=== PATIENT | female | born 1965 | race Caucasian/White ===

== ENCOUNTER 2019-03-01 09:55 | Inpatient (IN) | payer OTHER ==
[~2019-03-01 09:55] MED LIST: GLYCOPYRROLATE 0.4 MG INJ
[2019-03-01] MEDS ORDERED: FENTAnyl 50 MCG/ML VIAL ×2 (12:48→15:58)
[2019-03-01] MEDS ORDERED: SUCCINYLCHOLINE CHLORIDE 100 MG/5 ML SYG IV (14:57)
[2019-03-01] MEDS ORDERED: ROCURONIUM 50 MG INJ (14:57)
[2019-03-01] MEDS ORDERED: PROPOFOL 20 ML (14:57)
[2019-03-01] MEDS ORDERED: CEFAZOLIN 1 GM INJ (14:57)
[2019-03-01] MEDS ORDERED: LIDOCAINE 100 MG SYRINGE (14:57)
[2019-03-01] MEDS ORDERED: SUGAMMADEX SODIUM 200 MG/2 ML VIAL IV (14:57)
[2019-03-01] MEDS ORDERED: BUPIVACAINE 0.25%/EPI (SDV) 30 ML INJ (15:05)
[2019-03-01] MEDS ORDERED: HYDROmorphONE 1 MG/5 ML IV SYRINGE IV ×3 (15:58→16:00)
[2019-03-01] MEDS ORDERED: HYDROCODONE/APAP (5/325) TAB PO ×2 (16:00)
[2019-03-01] MEDS ORDERED: MEPERIDINE 25 MG INJ IV (16:00)
[2019-03-01] MEDS ORDERED: ONDANSETRON 4 MG INJ IV ×2 (16:00)
[2019-03-01] MEDS ORDERED: ALBUTEROL 0.083% (NEB) 2.5 MG/3 ML AMP HHN (16:00)
[2019-03-01] MEDS ORDERED: IBUPROFEN 600 MG TAB PO (16:00)
[2019-03-01] MEDS ORDERED: morphine 4 MG/ML VIAL IV (16:00)
[2019-03-01] MEDS ORDERED: ACETAMINOPHEN 325 MG TAB PO (16:00)
[2019-03-01] MEDS ORDERED: FENTAnyl 50 MCG/ML VIAL IV ×2 (16:00)
[2019-03-01] MEDS ORDERED: DIPHENHYDRAMINE 50 MG INJ IV (16:00)
[2019-03-01] MEDS ORDERED: METOCLOPRAMIDE 10 MG INJ IV (16:00)
[2019-03-01] MEDS: FENTAnyl 50 MCG/ML VIAL IV (16:25)
[2019-03-01] MEDS: HYDROmorphONE 1 MG/5 ML IV SYRINGE IV (16:26)
[2019-03-01] MEDS: KETOROLAC 30 MG INJ IV (18:06)
[2019-03-01] MEDS: DEXTROSE 5%-0.45% NACL 1,000 ML IV (18:09)
[2019-03-01] MEDS: DOCUSATE SODIUM 100 MG CAP PO (21:49)
[2019-03-01] MEDS: FAMOTIDINE 20 MG TAB PO (21:50)
[2019-03-02] MEDS: KETOROLAC 30 MG INJ IV ×2 (00:14→08:52)
[2019-03-02] MEDS: DEXTROSE 5%-0.45% NACL 1,000 ML IV (04:41)
[2019-03-02 05:25] LABS: ADD MAN DIFF? NO
[2019-03-02 05:30] LABS: ABNORMAL IP MESSAGE 1; BASOPHILS % 0.3 % (0.0-2.0); EOSINOPHILS % 0.1 % (0.0-7.0); HEMATOCRIT 31.1 % (37.0-47.0); HEMOGLOBIN 10.2 g/dl (12.0-16.0); LYMPHOCYTES % 14.9 % (15.0-51.0); MEAN CORPUSCULAR HEMOGLOBIN 32.9 pg (29.0-33.0); MEAN CORPUSCULAR HGB CONC 32.8 g/dl (32.0-37.0); MEAN CORPUSCULAR VOLUME 100.3 fl (82.0-101.0); MEAN PLATELET VOLUME 14.2 fl (7.4-10.4); MONOCYTE # 0.7 10^3/ul (0.3-0.9); MONOCYTES % 9.5 % (0.0-11.0); NEUTROPHIL # 5.2 10^3/ul (1.6-7.5); NEUTROPHILS % 75.1 % (39.0-77.0); PLATELET COUNT 129 10^3/UL (140-415); RED CELL DISTRIBUTION WIDTH 12.9 % (11.5-14.5)
[2019-03-02 05:44] LABS: POSITIVE DIFF @See below
[2019-03-02 05:57] LABS: ANION GAP 2 (5-13); BLOOD UREA NITROGEN 6 mg/dl (7-20); CALCIUM 8.2 mg/dl (8.4-10.2); CARBON DIOXIDE 29 mmol/L (21-31); CHLORIDE 109 mmol/L (97-110); CREATININE 0.58 mg/dl (0.44-1.00); Estimated GFR > 60 mL/min (>60); GLUCOSE 113 mg/dl (70-220); POTASSIUM 4.4 mmol/L (3.5-5.1); SODIUM 140 mmol/L (135-144)
[2019-03-02] MEDS: FAMOTIDINE 20 MG TAB PO (08:53)
[2019-03-02] MEDS: DOCUSATE SODIUM 100 MG CAP PO (08:53)
== END 2019-03-02 12:14 | disposition home or self-care (01) | DRG 581 ==
LOC: REC 09:55 → MS1 17:42
PROC: 0HTU0ZZ Resection of Left Breast, Open Approach (ICD-10-PCS; principal; 2019-03-01 12:30)
PROC: 07B60ZX Excision of Left Axillary Lymphatic, Open Approach, Diagnostic (ICD-10-PCS; 2019-03-01 12:30)
PROC: 0HPU0JZ Removal of Synthetic Substitute from Left Breast, Open Approach (ICD-10-PCS; 2019-03-01 12:30)
DX: C50.912 Malignant neoplasm of unspecified site of left female breast (principal); Z17.0 Estrogen receptor positive status [ER+]; Z98.82 Breast implant status
CPT/HCPCS: 80048; 85025; 88300; 88309